=== PATIENT | male | born 1960 | race Caucasian/White ===

== ENCOUNTER 2023-12-19 13:35 | Emergency (ER) | payer OTHER, SELFPAY ==
[2023-12-19 14:50] VITALS: BMI 25.1
--- NOTE | 2023-12-19 16:29 | ED.GENMED ---
History of Present Illness
General
Chief Complaint: Musculo-Skeletal Complaint
Source: patient
Exam Limitations: none
Time Seen by Provider: 12/19/23 14:28
Travel History
Have you had any contact with someone who has COVID-19?: No
Do you have any symptoms of coronavirus? Fever > 100 degrees, chills, cough, shortness of breath, sore throat, loss of taste or smell, muscle aches, or headache?: No
History of Present Illness
History of Present Illness:
63-year-old male presents with pain from the left buttocks down to his toes on the left. States is worse from hip to knee. No trauma. No fall. Does occasionally have some low back pain. History of diabetes and on insulin. Denies any recent
heavy lifting. Has been walking a lot to help manage his diabetes.
Past History
Past History
ED Past Medical History: IDDM
Phy Exam
Physical Exam
Physical Exam:
CONSTITUTIONAL Vital signs reviewed, Patient alert and oriented to person, place and time. Well-appearing
HEAD atraumatic, normocephalic.
EYES eyelids normal to inspection, Extraocular muscles intact, Conjunctiva normal, Sclera normal.
NECK normal range of motion, Trachea midline, no jugular venous distention.
RESP no respiratory distress
BACK No obvious deformities
UPPER EXTREMITY Gross Range of motion normal, gross motor strength normal
LOWER EXTREMITY Gross range of motion normal, Gross motor strength normal. Knee and hips with normal range of motion. Does have a positive straight leg raise on the left. Able to get it to about 60 or 70 degrees. Normal distal perfusion
NEURO Speech normal, No focal motor deficits include, [place] coma scale 15, Memory normal, Cranial Nerves intact to screening exam.
SKIN Skin warm, dry, and normal in color.
PSYCHIATRIC Patient oriented to person place and time, Normal affect.
Course
Orders/Labs/Results
Orders:
Orders
12/19/23 14:36
Hip, Left 2-3 Views [CR Hip - LT w/wo Pel 2-3 Vw*] Urgent
Comment:
Reason For Exam: pain, no fall/trauma
Include a pelvis x-ray?: No
Lumbar Spine, 2 or 3 View [CR Lumbar Spine 2 Or 3 Views] Urgent
Comment:
Reason For Exam: pain, no fall/trauma
Vital Signs
Initial and Last Documented VS:
Initial Vital Signs
Temp Pulse Resp Pulse Ox
97.8 F 61 18 98
12/19/23 13:40 12/19/23 13:40 12/19/23 13:40 12/19/23 13:40
Last Documented Vital Signs
Temp Pulse Resp BP Pulse Ox
97.8 F 49 18 169/81 99
12/19/23 13:40 12/19/23 16:50 12/19/23 16:50 12/19/23 16:50 12/19/23 16:50
MDM/Problems Addressed
MDM/Problems Addressed:
Lumbar radiculopathy
*Radiology
Radiology exam reviewed: all reviewed NAD by ED Provider
*Pulse Oximetry
Patient hypoxic: no
*Critical Care Note
Total Time (30-74mins, 75-104mins- exclusive of procedures): Not Applicable
Data Reviewed
Source: patient
Further Testing Considered But Not Given:
Consider CT imaging but no trauma.
Patient Management
Escalation/DeEscalation of care consider admission/obs:
Patient appears well. Suspect lumbar radiculopathy. Trial pain control and short course of steroids. Patient will monitor his blood glucose closely and tailor his insulin as needed.
ED Attending Note
-
Portions of this chart may have been created with voice recognition software.� Occasional wrong word or��sound alike� substitutions may have occurred due to the inherent limitations of voice recognition software.
Discharge Plan
Departure
Patient Disposition: Home (Routine Discharge)
Date of Disposition: 12/19/23
Time of Disposition: 16:32
Patient with high blood pressure during this ER visit?: Yes
Discharge Problem:
Acute lumbar radiculopathy
Instructions: Radiculopathy (DC), Sciatica ED, BLOOD PRESSURE, Narcotic Pain Medication
Prescriptions:
New
prednisone 10 mg Tablet
See Rx Instructions .ROUTE .COMPLEX Qty: 30 0RF
Rx Instructions:
Take By Mouth:
40 mg daily x3 days, 30 mg daily x3 days,
20 mg daily x3 days, 10 mg daily x3 days.
hydrocodone-acetaminophen 5-325 mg tablet
1 tab PO Q4H PRN (Reason: Pain) Qty: 14 0RF
Referrals:
UNKNOWN - PT DOES,NOT KNOW [Family Provider] -
Activity Restrictions/Additional Instructions:
Please see your doctor in the next 1 week for follow-up and reevaluation. Further evaluation with an MRI may be necessary. Steroids can sometimes increase your blood sugar levels. Please monitor your blood sugar regularly and dose your insulin
appropriately. Return for motor weakness, urinary incontinence, bowel incontinence, worsening pain, fevers or any other concerns.
Interventions
Interventions:
*Risk Screen - Suicide Last Done: 12/19/23 14:50
*General Assessment Last Done: 12/19/23 13:40
*Neglect/Abuse Screening Last Done: 12/19/23 14:50
ED- Fall Risk Assessment Last Done: 12/19/23 14:50
*ED COVID-19 Vaccine History Last Done: 12/19/23 13:40
*Nursing Disposition Last Done: 12/19/23 16:59
ED-Musculoskeletal Assessment Last Done: 12/19/23 14:51
Discharge Date and Time
Discharge Date/Time: 12/19/23 17:00
Print Language: PUERTO RICAN
[2023-12-19 16:50] VITALS: BP 169/81
== END 2023-12-19 17:00 | disposition home or self-care (01) ==
LOC: EMR 13:35
PROVIDERS: EMERGENCY PHYSICIAN Emergency Medicine
DX: M54.16 Radiculopathy, lumbar region (principal); E11.9 Type 2 diabetes mellitus without complications
CPT/HCPCS: 99283; 72100; 73502

== ENCOUNTER 2024-04-29 15:01 | Emergency (ER) | payer MEDICARE, OTHER, SELFPAY ==
[2024-04-29 15:09] VITALS: BP 177/88
--- NOTE | 2024-04-29 15:46 | ED.GENMED ---
History of Present Illness
General
Chief Complaint: Cold/Flu/URI Symptoms
Source: patient and spouse
Time Seen by Provider: 04/29/24 15:27
History of Present Illness
History of Present Illness:
63-year-old male who states that for the last 3 weeks he has been feeling very fatigued associated with anorexia, intermittent nausea with occasional nonbloody vomiting, and weight loss. He has a history of diabetes for which she takes insulin and
he is specifically here because he wants to make sure his kidneys are not abnormal. When asked about urinary symptoms he denies urgency, frequency, dysuria, hematuria states that his urine looks a little bit darker than normal. His stools are
normal in color without blood. He denies fever or chills, chest pain or dyspnea, upper back pain, URI symptoms, dizziness. He has an occasional headache without associated visual changes, photophobia, numbness, tingling, focal weakness. Patient
also notes intermittent discomfort across his lower back when he moves a certain way, none present now. No recent trauma or falls.
Past History
Past History
ED Past Medical History: IDDM
ED Past Surgical History: None
Social History
Tobacco: Non-smoker
Alcohol: None
Drug: None
Personal:
Living: with family
Employment: Employed
Phy Exam
Physical Exam
Physical Exam:
GENERAL: Alert , in no apparent distress
EYE: pupils equal and reactive, conjunctive a pink, no icterus
NECK: Supple, no significant adenopathy.
ENT: o/p clr, mmm.
CARDIAC: Regular rate and rhythm .
LUNGS: Clear breath sounds bilaterally, no acute respiratory distress, no wheezes/rales/rhonchi
ABDOMEN: Soft, without focal tenderness, no r/g, no cvat
NEUROLOGICAL: Alert and oriented, no focal neuro deficits
SKIN: Warm and dry, skin intact.
MUSCULOSKELETAL: No edema, well perfused.
PSYCH: Normal and appropriate interaction.
BACK: nontender, no bruising or other abnl, moves about bed with ease
Course
Orders/Labs/Results
Orders:
Orders
04/29/24 15:46
Electrocardiogram (*1) Urgent
Reason for Study: Other
Other Reason for Exam: fatigue
EKG- Treatment ONCE
04/29/24 15:57
Complete Blood Count/No Diff Urgent
Comprehensive Metabolic Panel Urgent
Troponin I Urgent
Urinalysis Reflex To Culture Urgent
Date Specimen was Collected: 04/29/24
Time Specimen was Collected: 15:49
Abnormal Lab Results
04/29/24
15:57
Hct 38.2 L %
(39.0-52.0)
Carbon Dioxide 31 H mmol/L
(22-30)
Glucose 139 H mg/dl
(70-99)
04/29/24 15:57
04/29/24 15:57
Vital Signs
Initial and Last Documented VS:
Initial Vital Signs
Temp Pulse Resp BP Pulse Ox
97.8 F 64 18 177/88 98
04/29/24 15:09 04/29/24 15:09 04/29/24 15:09 04/29/24 15:09 04/29/24 15:09
Last Documented Vital Signs
Temp Pulse Resp BP Pulse Ox
97.8 F 57 16 177/88 98
04/29/24 15:09 04/29/24 15:52 04/29/24 15:52 04/29/24 15:09 04/29/24 15:52
*Critical Care Note
Total Time (30-74mins, 75-104mins- exclusive of procedures): Not Applicable
Update Note
Update Note:
Patient presents to the Emergency Department with anorexia, fatigue, etc.
Number and Complexity of Problems Addressed at the Encounter
� Chronic conditions affecting care:
� Acute Exacerbation and/or Progression of Chronic Illness:
� Differential Diagnosis includes: But not limited to hepatitis, renal insufficiency, anemia, etc. etc.
Amount and/or Complexity of Data to be Reviewed and Analyzed
� I performed an independent evaluation of and my interpretation is:
EKG: Read by me, sinus bradycardia, nonspecific T wave flattening, no acute ischemia
CT:
Xrays:
Laboratory Studies: Unremarkable
Other:
� Review of other/old records reveals:
� Clinical information was obtained by an independent historian:
� Prescriptions/Medications Considered but not given:
� Further testing considered but not performed:
Risk of Complications and/or Morbidity or Mortality of Patient Management
� Social determinants of health affecting care:
� Discussion with other providers (PCP, Hospitalists, Consultants, etc):
� Escalation of care including admission/observation vs risk of discharge considered: 5:22 PM patient reassessed, comfortable, laying in bed, in no distress, no complaints. No findings in history physical or evaluation here to
suggest urgent/emergent etiology of his symptoms. Discussed with patient importance of close follow-up and reasons return to the emergency department. He has an appointment scheduled with his primary care doctor later this month and will bring his
results with him.
ED Attending Note
-
Portions of this chart may have been created with voice recognition software.� Occasional wrong word or��sound alike� substitutions may have occurred due to the inherent limitations of voice recognition software.
Discharge Plan
Departure
Patient Disposition: Home (Routine Discharge)
Date of Disposition: 04/29/24
Time of Disposition: 17:21
Patient with high blood pressure during this ER visit?: Yes
Condition: Good
Discharge Problem:
Back pain
Instructions: Back Pain, BLOOD PRESSURE
Prescriptions:
No Action
prednisone 10 mg Tablet
See Rx Instructions .ROUTE .COMPLEX Qty: 30 0RF
Rx Instructions:
Take By Mouth:
40 mg daily x3 days, 30 mg daily x3 days,
20 mg daily x3 days, 10 mg daily x3 days.
hydrocodone-acetaminophen 5-325 mg tablet
1 tab PO Q4H PRN (Reason: Pain) Qty: 14 0RF
Referrals:
Charu Lucero CRNP [Family Provider] - Keep scheduled appt
Activity Restrictions/Additional Instructions:
IF YOU DEVELOP DIZZINESS, FEVER, CHEST PAIN, SHORTNESS OF BREATH, RECURRENT VOMITING, NUMBNESS, OR OTHER WORRISOME SIGNS, PLEASE RETURN TO THE ER IMMEDIATELY.
Interventions
Interventions:
*Risk Screen - Suicide Last Done: 04/29/24 15:09
*General Assessment Last Done: 04/29/24 15:09
*Neglect/Abuse Screening Last Done: 04/29/24 15:09
ED- Fall Risk Assessment Last Done: 04/29/24 15:52
*ED COVID-19 Vaccine History Last Done: 04/29/24 15:52
ED- Pulmonary Assessment Last Done: 04/29/24 15:52
Discharge Date and Time
Print Language: GERMAN
[2024-04-29 15:52] VITALS: BMI 22.8
[2024-04-29 16:04] LABS: Urine Albumin Negative (Neg - Trace); Urine Bilirubin Negative (Negative); Urine Character Clear (Clear); Urine Color Yellow; Urine Glucose Negative (Negative); Urine Ketone Negative (Negative); Urine Leukocyte Negative (Negative); Urine Nitrite Negative (Negative); Urine Occult Blood Negative (Negative); Urine Urobilinogen Negative (Neg - 1+); Urine pH 6.5 (5.0-9.0)
[2024-04-29 16:07] LABS: Hematocrit 38.2 % (39.0-52.0); Hemoglobin 13.4 g/dL (13.0-18.0); Mean Corp Hgb Conc. 35.1 g/dL (33.0-37.0); Mean Corpuscular Hgb 28.2 pg (27.0-31.0); Mean Corpuscular Volume 80.4 fL (80.0-94.0); Mean Platelet Volume 9.5 fL (7.4-10.4); Platelet Count 171 10^3/uL (130-400); Red Blood Cell Count 4.75 10^6/uL (4.70-6.10); Red Cell Dist. Width 12.6 % (11.5-14.5); White Blood Cell Count 5.3 10^3/uL (4.8-10.8)
[2024-04-29 16:27] LABS: Troponin I < 0.012 ng/ml
[2024-04-29 16:36] LABS: ALT (SGPT) 20 U/L (0-50); AST (SGOT) 24 U/L (17-59); Albumin 4.6 g/dl (3.5-5.0); Alkaline Phosphatase 70 U/L (38-126); Blood Urea Nitrogen 18 mg/dl (9-20); Calcium 10.1 mg/dl (8.4-10.2); Carbon Dioxide 31 mmol/L (22-30); Chloride 102 mmol/L (98-107); Estimated Creatinine Clearance 82 ml/min; Glucose 139 mg/dl (70-99); Potassium 4.4 mmol/L (3.5-5.1); Sodium 142 mmol/L (135-145); Total Bilirubin 1.2 mg/dl (0.2-1.3); Total Protein 6.9 g/dl (6.3-8.2); eGFR > 60.00
[2024-04-29 17:00] VITALS: BP 161/80
== END 2024-04-29 17:36 | disposition home or self-care (01) ==
LOC: EMR 15:01
PROVIDERS: EMERGENCY PHYSICIAN Emergency Medicine; FAMILY PHYSICIAN Nurse Practitioner Family
DX: M54.9 Dorsalgia, unspecified (principal); R03.0 Elevated blood-pressure reading, without diagnosis of hypertension; E11.9 Type 2 diabetes mellitus without complications
CPT/HCPCS: 99284; 80053; 81003; 84484; 85027; 93005